=== PATIENT | male | born 1995 | race Caucasian/White ===

== ENCOUNTER 2018-12-12 04:16 | Emergency (ER) | payer OTHER ==
[~2018-12-12] VITALS: Ht 175.3 cm; Wt 81.7 kg
[2018-12-12] MEDS ORDERED: CORTISPORIN OTI10 M2 OTIC (04:26)
[2018-12-12] MEDS ORDERED: BACTRIM DS TAB1 EACH PO (04:26)
[2018-12-12] MEDS ORDERED: TRAMADOL 50 MG50 MG PO (04:33)
[2018-12-12 05:35] VITALS: BP 122/80
== END 2018-12-12 05:35 | disposition home or self-care (01) ==
LOC: ER 04:16
DX: H66.42 Suppurative otitis media, unspecified, left ear (principal)